=== PATIENT | male | born 1985 | race Caucasian/White ===

== ENCOUNTER 2022-08-09 09:05 | Emergency (ER) | payer BC ==
[2022-08-09] MEDS: methylPREDNISolone Sodium Succinate 125 MG/2 ML SDV IM ONE (10:16)
== END 2022-08-09 10:23 | disposition home or self-care (01) ==
LOC: DL.ED 09:05
DX: M54.42 Lumbago with sciatica, left side (principal); M54.41 Lumbago with sciatica, right side
CPT/HCPCS: 96372; 99283; J2930